=== PATIENT | male | born 1955 | race Caucasian/White ===

== ENCOUNTER 2019-04-27 18:36 | Emergency (ER) | payer OTHER ==
[~2019-04-27] VITALS: Ht 180.3 cm; Wt 104.3 kg
[2019-04-27] MEDS ORDERED: SODIUM BICARBONATE 8.4% INJ 50ML SYRINGE IV ONE (18:37)
[2019-04-27] MEDS ORDERED: EPINEPHrine HCL 1 MG/10 ML SYRG IV ONE (18:37)
== END 2019-04-28 03:55 | disposition expired ==
LOC: EDBD 18:36 → ER 18:36
DX: I46.9 Cardiac arrest, cause unspecified (principal); I10 Essential (primary) hypertension
CPT/HCPCS: 31500; 92950; 99291; J0171